=== PATIENT | female | born 1985 | race African-American/Black ===

== ENCOUNTER 2018-03-14 20:39 | Emergency (ER) | payer BC, OTHER ==
[2018-03-14 20:54] VITALS: BP 119/74; PULSE 70; TEMP 98.8; BMI 26.6
--- NOTE | 2018-03-14 20:59 | PDOC ---
History of Present Illness - General History Source: Patient Exam Limitations: No Limitations - History of Present Illness Initial Comments: 03/14/18 21:33 The patient is a 32 year old female with a significant past medical history of gallstones who presents to the emergency department for evaluation of chest pain. The patient reports a 3 day history of moderate chest pain radiating to the back, and neck pain. She describes the chest pain is present at rest, worsening in nature, and is exacerbated with eating and inspiration. The patient reports associated symptoms of a productive cough with green sputum ( occurring for 1 week), nasal congestion, and a headache. The patient reports she had an upper respiratory infection about 1 week ago which she has taken medication for. She reports taking Tylenol with no alleviation to her symptoms. Of note, the patient states the pain she feels is similar to the pain she felt when she had gallstones 3 years ago. The patient denies hormonal medication, abdominal pain, shortness of breath, changes in vision, and dizziness. Denies fevers, chills, nausea, vomiting, diarrhea, and constipation. Denies dysuria, frequency, urgency, and hematuria. Allergies: NKDA Past surgical history: , Cholecystectomy, Laparoscopic Uterine Polypectomy. Social history: No reported cigarette, alcohol, or drug use. PCP: Dr. Franco Renae <Jim Michelle - Last Filed: 03/14/18 22:02> <Elizabeth Deleon - Last Filed: 03/15/18 01:11> - General Chief Complaint: Respiratory Stated Complaint: CHEST PAIN Time Seen by Provider: 03/14/18 20:52 Past History <Jim Michelle - Last Filed: 03/14/18 22:02> - Past Medical History COPD: No - Surgical History Cholecystectomy: Yes - Suicide/Smoking/Psychosocial Hx Smoking History: Never smoked Hx Alcohol Use: Yes (OCCASIONAL) Drug/Substance Use Hx: No Substance Use Type: None <Elizabeth Deleon - Last Filed: 03/15/18 01:11> - Past Medical History Allergies/Adverse Reactions: Allergies Allergy/AdvReac Type Severity Reaction Status Date / Time No Known Allergies Allergy Verified 03/14/18 20:47 Home Medications: Ambulatory Orders NK [No Known Home Medication] 03/14/18 Review of Systems - Review of Systems Able to Perform ROS?: Yes Comments:: All systems are reviewed and negative except as noted in the HPI. <Jim Michelle - Last Filed: 03/14/18 22:02> *Physical Exam - Vital Signs Last Vital Signs Temp Pulse Resp BP Pulse Ox 98.8 F 70 17 119/74 100 03/14/18 20:46 03/14/18 20:46 03/14/18 20:46 03/14/18 20:46 03/14/18 20:46 - Physical Exam Comments: GENERAL: The patient is awake, alert, and fully oriented, in no acute distress. HEAD: Normal with no signs of trauma. EYES: Pupils equal, round and reactive to light, extraocular movements intact, sclera anicteric, conjunctiva clear. LUNGS: Breath sounds equal, clear to auscultation bilaterally. No wheezes, and no crackles. No chest wall tenderness. HEART: Regular rate and rhythm, normal S1 and S2 without murmur, rub or gallop. ABDOMEN: Soft, nontender, normoactive bowel sounds. No tenderness. No guarding, no rebound. No masses. EXTREMITIES: Normal range of motion, no edema. NEUROLOGICAL: Normal speech, normal gait. PSYCH: Normal mood, normal affect. SKIN: Warm, Dry, normal turgor, no rashes or lesions noted. <Jim Michelle - Last Filed: 03/14/18 22:02> - Vital Signs Last Vital Signs Temp Pulse Resp BP Pulse Ox 98.8 F 70 17 119/74 100 03/14/18 20:46 03/14/18 20:46 03/14/18 20:46 03/14/18 20:46 03/14/18 20:46 <Elizabeth Deleon - Last Filed: 03/15/18 01:11> Medical Decision Making - Medical Decision Making Documentation has been prepared under my direction and personally reviewed by me in its entirety. I attest that this documented accurately reflects all work, treatment, procedures and medical decision making performed by me. As noted above, this 32-year-old woman with a history of cholecystectomy but no other significant medical problems presents with a few day history of anterior chest pain radiating to the posterior and to her neck. Pain is directly related to movement and deep breathing, worse postprandially. Of note, the patient has had history of bronchitis in the last several days and has been actively coughing. As noted above, patient has no significant risk factors for coronary artery disease or thromboembolic disease. The patient herself is most concerned that the pain she is experiencing is related to recurrent biliary duct stones. Although the patient had her gallbladder removed, but pain pattern is very similar (but slightly higher in location) to the discomfort she felt prior to the removal of her gallbladder. Exam as noted. Patient last ate approximately 8 hours prior to presentation; she noted that this was high fat content meal. Right upper quadrant limited abdomen ultrasound performed and interpreted by Dr. Wynn of the radiology staff: Common bile duct diameter is 0.7 centimeter which is borderline widened. Interpretation was that this could either be postoperative edema or subtle change secondary to pathologic process. MRCP suggested follow-up as needed. Results discussed with the patient. She will follow-up with her general doctor regarding this study and meanwhile continue low fat diet. She also use local warmth 2 areas of pain in her chest and Motrin with food as needed. She will return to the emergency room if she has persistent severe pain/fever/vomiting. <Elizabeth Dleeon - Last Filed: 03/15/18 01:11> *DC/Admit/Observation/Transfer - Attestations Scribe Attestion: Documentation prepared by Jim Michelle, acting as medical services assistant for Elizabeth Deleon MD. <Jim Michelle - Last Filed: 03/14/18 22:02> <Elizabeth Deleon - Last Filed: 03/15/18 01:11> Diagnosis at time of Disposition: Atypical chest pain - Discharge Dispostion Disposition: HOME Condition at time of disposition: Stable - Referrals Referrals: Franco Renae MD [Primary Care Provider] - - Patient Instructions Printed Discharge Instructions: DI for Atypical Chest Pain Additional Instructions: Local warmth to areas of pain Ibuprofen 600 mg up to 3 times a day as needed; take with food Return to ER if you have worsening pain/shortness of breath/wheezing/high fever Follow-up with your general doctor within the next week/sooner if pain worsens Maintain low fat diet - Post Discharge Activity
[2018-03-14] MEDS ORDERED: KETOROLAC TROMETHAMINE 60 MG/2 ML VIAL IM ONE (23:05)
[2018-03-14] MEDS ORDERED: KETOROLAC TROMETHAMINE 60 MG/2 ML VIAL ONE (23:08)
== END 2018-03-14 23:19 | disposition home or self-care (01) ==
LOC: FER 20:39
PROC: 3E0233Z Introduction of Anti-inflammatory into Muscle, Percutaneous Approach (ICD-10-PCS; principal; 2018-03-14)
DX: R07.89 Other chest pain (principal)
CPT/HCPCS: 76705-TC; 99281-25